=== PATIENT | male | born 1960 | race Caucasian/White ===

== ENCOUNTER 2019-11-03 05:18 | Observation (INO) | payer MEDICAID ==
[2019-10-27 15:41] LABS: BASOPHILS # (AUTO) 0.1 X10'3 (0-0.2); BASOPHILS % (AUTO) 1.1 % (0-1); EOSINOPHILS # (AUTO) 0.4 X10'3 (0-0.9); EOSINOPHILS % (AUTO) 4.7 % (0-6); LYMPHOCYTES # (AUTO) 2.1 X10'3 (1.1-4.8); LYMPHOCYTES % (AUTO) 26.9 % (21-51); MEAN CORPUSCULAR HEMOGLOBIN 34.3 PG (27.0-31.0); MEAN CORPUSCULAR HGB CONC 35.3 g/dL (33.0-36.5); MEAN CORPUSCULAR VOLUME 97.3 FL (78-98); MEAN PLATELET VOLUME 7.9 FL (7.4-10.4); MONOCYTES # (AUTO) 0.9 X10'3 (0-0.9); MONOCYTES % (AUTO) 11.5 % (2-12); NEUTROPHILS # (AUTO) 4.4 X10'3 (1.8-7.7); NEUTROPHILS % (AUTO) 55.8 % (42-75); PRE OP HEMATOCRIT 47.2 % (42.0-52.0); PRE OP HEMOGLOBIN 16.7 g/dL (14.0-17.9); PRE OP PLATELET COUNT 183 X10'3 (140-440); RED BLOOD COUNT 4.85 X10'6 (4.70-6.10); RED CELL DISTRIBUTION WIDTH 13.3 % (11.5-14.5)
[2019-10-27 15:46] LABS: ALBUMIN 3.9 G/DL (3.4-5.0); ALKALINE PHOSPHATASE 77 IU/L (46-116); BLOOD UREA NITROGEN 10 MG/DL (7-18); BUN/CREATININE RATIO 11.4 (5.4-32.0); CALCIUM 8.7 MG/DL (8.5-10.1); CHLORIDE 103 MMOL/L (99-107); CREATININE 0.88 MG/DL (0.60-1.10); PRE OP ANION GAP 9 (8-16); PRE OP BILIRUB, TOTAL 0.5 MG/DL (0.0-1.0); PRE OP GLUCOSE 98 MG/DL (70-104); PRE OP POTASSIUM 3.7 MMOL/L (3.4-5.1); PRE OP SODIUM 137 MMOL/L (135-145); TOTAL CARBON DIOXIDE 25.2 MMOL/L (24-32); TOTAL PROTEIN 7.9 G/DL (6.4-8.2); eGFR 89 ML/MIN
[2019-10-27 15:50] LABS: PRE OP ALT 229 U/L (30-65); PRE OP AST 134 U/L (10-37)
[~2019-11-03] VITALS: Ht 170.2 cm; Wt 93.6 kg
[2019-11-03] VITALS (19 sets, daily range): BP systolic 102–142; BP diastolic 60–116
[~2019-11-03 05:18] MED LIST: BACL10TA2 PO; MELOXICAM PO; MULTIVITAMIN PO; VIT C PO; ringers solution, lacted 1,000 ML IV SCH
[2019-11-03] MEDS ORDERED: famotidine 20mg tablet PO ONE (05:30)
[2019-11-03] MEDS ORDERED: ceFAZolin 2gm in dextrose, iso 50 ML IV ONE (05:30)
[2019-11-03 06:25] LABS: PRE OP INR 1.1 INR; PRE OP PROTIME 11.3 SECONDS (9.0-12.0)
[2019-11-03] MEDS ORDERED: fentaNYL /PF 50mcg/ml 5ml ampule ONE ×2 (07:03→09:49)
[2019-11-03] MEDS ORDERED: MIDAZolam 5mg/5ml vial ONE (07:03)
[2019-11-03] MEDS ORDERED: rocuronium 10mg/ml inj IV ONE ×4 (07:04→11:16)
[2019-11-03] MEDS ORDERED: LIDOcaine 2% (20mg/ml) 5ml vial ONE (07:06)
[2019-11-03] MEDS ORDERED: ondansetron/PF 4mg/2ml inj ONE (07:06)
[2019-11-03] MEDS ORDERED: dexamethasone sod phosphate 4mg/ml inj. ONE (07:06)
[2019-11-03] MEDS ORDERED: ringers solution, lacted 1,000 ML IV SCH (07:08)
[2019-11-03] MEDS ORDERED: morphine 2 MG/ML inj. syringe IV PRN (07:10)
[2019-11-03] MEDS ORDERED: morphine 4 MG/ML inj SYRINge IV PRN (07:10)
[2019-11-03] MEDS ORDERED: labetalol 20mg/4ml (5mg/ml) syringe IV PRN (07:10)
[2019-11-03] MEDS ORDERED: fentaNYL/PF 50MCG/1 ML 2ML syringe IV PRN ×2 (07:10)
[2019-11-03] MEDS ORDERED: hydrALAZINE 20mg/ml inj. IV PRN (07:10)
[2019-11-03] MEDS ORDERED: ondansetron/PF 4mg/2ml inj IV PRN ×2 (07:10→13:20)
[2019-11-03] MEDS ORDERED: sevoflurane 250ml liquid IH ONE (07:35)
[2019-11-03] MEDS ORDERED: labetalol 20mg/4ml (5mg/ml) syringe IV ONE ×2 (07:35→08:23)
[2019-11-03] MEDS ORDERED: propofol 10mg/ml 20ml vial IV ONE (07:35)
[2019-11-03] MEDS ORDERED: neostigmine methylsulfate 1 MG/ML 10ml vial ONE (07:35)
[2019-11-03] MEDS ORDERED: glycopyrrolate 0.2mg/ml inj ONE (07:35)
[2019-11-03] MEDS ORDERED: BUPIVAcaine/PF 2.5 mg/ml (0.25%) 30ml vial ONE (08:01)
[2019-11-03] MEDS ORDERED: epiNEPHrine 1 mg/ml inj ONE (08:01)
[2019-11-03] MEDS ORDERED: albumin (Human) 5% 250ml 250 ML IV ONE ×2 (12:01→12:07)
[2019-11-03] MEDS ORDERED: morphine 10mg/ml inj. ONE ×2 (12:06)
--- NOTE | 2019-11-03 13:08 | NUR ---
Received from OR via , accompanied by Anesthesiologist DR DELUCA and report given by Anesthesiolgist. RESPONDS TO VOICE. VITALS STABLE. DRESSINGS DI. MIRTA PAIN. ABD SOFT. OSHEA WITH BLOODY URINE. JORY WITH SERO SANG DRAINAGE IN BULB.
[2019-11-03] MEDS ORDERED: HYDROcodone/acetaminophen 10/325mg tab PO PRN ×2 (13:20)
[2019-11-03] MEDS ORDERED: acetaminophen 325mg tablet PO PRN (13:20)
--- NOTE | 2019-11-03 14:00 | NUR ---
Report received from [facility].
--- NOTE | 2019-11-03 14:20 | NUR ---
PT C/O RT SHOULDER PAIN. OVAL SHAPED RED AREA NOTED TO TOP OF RT SHOULDER. PT STATES AREA IS PAINFUL TO TOUCH AND ALSO FEELS IF PAIN EXTENDS INTO SHOULDER JOINT. DR RUIZ AND DR DELUCA WERE NOTIFIED AND WILL ASSESS PT SOON IT IS POSSIBLE.
--- NOTE | 2019-11-03 14:38 | NUR ---
Report called to receiving nurse. Transferred via [facility] . Special Issues communicated to receiving nurse. AWAKE AND ORIENTED. VITALS STABLE. DRESSINGS DI. STATES OAIN IMPROVING. TO SURGICAL RM 347B AT THIS TIME.
[2019-11-03] MEDS: HYDROmorphone 1 mg/ml syringe IV PRN ×2 (17:21→22:03)
[2019-11-03] MEDS ORDERED: traMADol 50MG tablet PO PRN (17:55)
--- NOTE | 2019-11-03 18:10 | NUR ---
Problems reprioritized. Patient report given, questions answered & plan of care reviewed with JD Thornton.
[2019-11-03] MEDS: traMADol 50MG tablet PO PRN (20:18)
[2019-11-03] MEDS ORDERED: baclofen 10mg tablet PO SCH (21:00)
[2019-11-04] VITALS: BP 118/70
[2019-11-04] MEDS: HYDROmorphone 1 mg/ml syringe IV PRN ×3 (04:29→17:33)
[2019-11-04 05:18] LABS: ALBUMIN 3.5 G/DL (3.4-5.0); ANION GAP 9 (8-16); BLOOD UREA NITROGEN 12 MG/DL (7-18); BUN/CREATININE RATIO 11.8 (5.4-32.0); CALCIUM 8.6 MG/DL (8.5-10.1); CHLORIDE 104 MMOL/L (99-107); CREATININE 1.02 MG/DL (0.60-1.10); GLUCOSE 119 MG/DL (70-104); POTASSIUM 3.9 MMOL/L (3.5-5.1); SODIUM 139 MMOL/L (135-145); eGFR 75 ML/MIN
[2019-11-04 05:28] LABS: BASOPHILS % (AUTO) 0.2 % (0-1); EOSINOPHILS % (AUTO) 0 % (0-6); HEMATOCRIT 40.9 % (42.0-52.0); HEMOGLOBIN 14.1 g/dl (14.0-17.9); LYMPHOCYTES # (AUTO) 1.4 X10'3 (1.1-4.8); LYMPHOCYTES % (AUTO) 11.9 % (21-51); MEAN CORPUSCULAR HEMOGLOBIN 33.9 PG (27.0-31.0); MEAN CORPUSCULAR HGB CONC 34.5 g/dL (33.0-36.5); MEAN CORPUSCULAR VOLUME 98.2 FL (78-98); MEAN PLATELET VOLUME 8.2 FL (7.4-10.4); MONOCYTES # (AUTO) 1.1 X10'3 (0-0.9); MONOCYTES % (AUTO) 9.4 % (2-12); NEUTROPHILS # (AUTO) 9.6 X10'3 (1.8-7.7); NEUTROPHILS % (AUTO) 78.5 % (42-75); PLATELET COUNT 177 X10'3 (140-440); RED BLOOD COUNT 4.17 X10'6 (4.70-6.10); WHITE BLOOD COUNT 12.2 X10'3 (4.5-11.0)
--- NOTE | 2019-11-04 06:05 | NUR ---
Patient in room [facility]. I have received report from JD Thornton and had the opportunity to ask questions and assume patient care.
[2019-11-04 06:30] VITALS: BP 117/73
[2019-11-04] MEDS ORDERED: TRAM50TA2 PO (11:21)
[2019-11-04] MEDS ORDERED: DOCU-148 PO (11:21)
[2019-11-04] MEDS: traMADol 50MG tablet PO PRN ×2 (11:21→15:26)
[2019-11-04] MEDS ORDERED: HYDR-4383 PO (11:21)
--- NOTE | 2019-11-04 18:10 | NUR ---
DC inst provided to pt. IV DC'd, tip intact. All belongings sent w/pt. WC to front lobby.
[2019-11-05] MEDS ORDERED: docusate sod 250mg capsule PO SCH (08:00)
== END 2019-11-04 18:18 | disposition home or self-care (01) ==
LOC: PAS 05:18 → SUR 3N 13:19
PROVIDERS: ADMIT Urology; ATTEND Urology
DX: Z03.818 Encounter for observation for suspected exposure to other biological agents ruled out (principal); C61 Malignant neoplasm of prostate; R97.20 Elevated prostate specific antigen [PSA]
CPT/HCPCS: 36415; 55866; 71046; 80048; 80053; 82948; 85025; 85610; 85730; 86885; 86900; 86901; 93005; 96361; 96374; 96376; C1758; G0378; J0171; J1100; J1170; J2001; J2250; J2270; J2405; J2704; J2710; J3010; J3490; J7120; P9045; S2900; U0003; A4215; A4338; A4618; A6449; A7000